=== PATIENT | male | born 1980 | race African-American/Black ===

== ENCOUNTER 2020-04-14 19:00 | Emergency (ER) | payer SELFPAY ==
[2020-04-14 19:06] VITALS: BP 130/74; PULSE 87; TEMP 97.8; BMI 31.4
[2020-04-14] MEDS ORDERED: DEXAMETHASONE SOD PHOSPHATE 10 MG/1 ML VIAL IM ONE (19:21)
[2020-04-14] MEDS ORDERED: DEXAMETHASONE SOD PHOSPHATE 10 MG/1 ML VIAL ONE (19:26)
== END 2020-04-14 19:50 | disposition home or self-care (01) ==
LOC: FER 19:00
PROC: 3E0233Z Introduction of Anti-inflammatory into Muscle, Percutaneous Approach (ICD-10-PCS; principal; 2020-04-14)
DX: J02.9 Acute pharyngitis, unspecified (principal); Z11.52 Encounter for screening for COVID-19
CPT/HCPCS: 99284-25; C9803; J1100; U0003

== ENCOUNTER 2020-08-12 14:47 | Emergency (ER) | payer SELFPAY ==
[2020-08-12 14:54] VITALS: BP 127/96; PULSE 60; TEMP 98; BMI 31.9
[2020-08-12] MEDS ORDERED: KETOROLAC TROMETHAMINE 15 MG/ML VIAL IM ONE (16:07)
[2020-08-12] MEDS ORDERED: DEXAMETHASONE 4 MG TABLET (FP) PO ONE (16:09)
[2020-08-12] MEDS ORDERED: DEXAMETHASONE SOD PHOSPHATE 10 MG/1 ML VIAL ONE (16:28)
[2020-08-12] MEDS ORDERED: KETOROLAC TROMETHAMINE 30 MG/1 ML VIAL ONE (16:28)
[2020-08-12 18:12] LABS: SYPHILIS W/ RPR CONF NON-REACTIVE (NONREACTIVE)
[2020-08-12 18:41] LABS: HIV INTERPRETATION NEGATIVE (NEGATIVE)
== END 2020-08-12 18:00 | disposition home or self-care (01) ==
LOC: FER 14:47
PROC: 3E0233Z Introduction of Anti-inflammatory into Muscle, Percutaneous Approach (ICD-10-PCS; principal; 2020-08-12)
DX: R07.0 Pain in throat (principal); N50.812 Left testicular pain; K46.9 Unspecified abdominal hernia without obstruction or gangrene
CPT/HCPCS: 36415; 86780; 87389; 87491; 87591; 87880; 99284-25; C9803; U0003; U0005

== ENCOUNTER 2020-09-25 02:12 | Emergency (ER) | payer SELFPAY ==
[2020-09-25 02:20] VITALS: BP 119/70; PULSE 72; TEMP 98.7; BMI 31.4
[2020-09-25] MEDS ORDERED: diphenhydrAMINE HCL 50 MG CAPSULE PO ONE (02:23)
[2020-09-25] MEDS ORDERED: predniSONE 20 MG TABLET (UD) PO ONE (02:24)
[2020-09-25] MEDS ORDERED: diphenhydrAMINE HCL 25 MG CAPSULE (FP) PO ONE (02:24)
[2020-09-25] MEDS ORDERED: predniSONE 20 MG TABLET (UD) ONE (02:24)
== END 2020-09-25 02:29 | disposition home or self-care (01) ==
LOC: FER 02:12
DX: L29.9 Pruritus, unspecified (principal)
CPT/HCPCS: 99283-25